=== PATIENT | male | born 1990 | race African-American/Black ===

== ENCOUNTER 2019-04-06 14:07 | Emergency (ER) | payer SELFPAY ==
--- NOTE | 2019-04-06 14:27 | ER Document Report ---
HPI - HPI Patient complains to provider of: insect bite Time Seen by Provider: 04/06/19 14:19 Onset: Other - 2 days ago Quality of pain: Achy Context: 28-year-old male with no prior history presents emergency department with sore to the right forearm. Reports he thinks it could be a spider bite but does not see anything bite him. Reports he noticed on . He did drain it at that time. He placed Neosporin and a Band-Aid on it the next day he squeezed it again got drainage. Reports the area is more swollen today. Denies fever vomiting diarrhea. Denies history of MRSA. Associated Symptoms: None Exacerbated by: Denies Relieved by: Denies Similar symptoms previously: No Recently seen / treated by doctor: No Past Medical History - General Information source: Patient - Social History Smoking Status: Current Every Day Smoker Cigarette use (# per day): Yes Occupation: [place] Family History: None Patient has suicidal ideation: No Patient has homicidal ideation: No - Medical History Medical History: Negative Surgical Hx: Negative Vertical Provider Document - CONSTITUTIONAL Agree With Documented VS: Yes Exam Limitations: No Limitations General Appearance: WD/WN, No Apparent Distress - HEENT HEENT: Atraumatic, Normocephalic - NECK Neck: Supple - RESPIRATORY Respiratory: No Respiratory Distress - CARDIOVASCULAR Cardiovascular: Regular Rate - MUSCULOSKELETAL/EXTREMETIES Musculoskeletal/Extremeties: MAEW, FROM, Non-Tender - NEURO Level of Consciousness: Awake, Alert, Appropriate Motor/Sensory: No Motor Deficit - DERM Integumentary: Warm, Dry, Abscess - Right forearm Adult Front & Back Diagram: 1 - Abscess noticed to right forearm induration approximately 3 cm erythema with dark area to the center. Patient reports drainage from that area Course - Re-evaluation Re-evalutation: 04/06/19 15:08 28-year-old male presents emergency department with right forearm questionable insect bite. Reports it happened on he is squeezed it drained it twice. Reports swelling today. Denies history of MRSA. Incision and drainage completed. Very little bloody drainage obtained. Patient was instructed on signs and symptoms of worsening infection. He was instructed on Septra. This instructed on signs and symptoms of allergic reaction. He verbalized understanding to all instructions. Dictation of this chart was performed using voice recognition software; theref ore, there may be some unintended grammatical errors. - Vital Signs Vital signs: Temp Pulse Resp BP Pulse Ox 98.2 F 95 18 144/79 H 99 04/06/19 14:14 04/06/19 14:14 04/06/19 14:14 04/06/19 14:14 04/06/19 14:14 Procedures - Incision and Drainage right forearm Time completed: 15:05 Type: Simple Anesthetic type: 1% Lidocaine I&D procedure: Shurclens applied Incision Method: Incision made by scalpel Adult Front & Back picture: 1 - T Shaped incision made with scalpel. Area probed small amount of bloody discharge obtained. Discharge - Discharge Clinical Impression: Abscess Condition: Stable Disposition: HOME, SELF-CARE Instructions: Abscess ([facility]), Post Incision and Drainage, Trimethoprim-Sulfa ([facility]) Additional Instructions: *You have been treated for an abscess with incision and drainage *Take medication as prescribed *Monitor the site for signs of increasing infection such as increasing pain, redness, swelling, warmth *Wash the site twice daily as discussed *Follow up with a primary care provider within one week *Return to ED for signs of increasing infection, worsening condition, changes, needs Prescriptions: Sulfamethoxazole/Trimethoprim [Bactrim Ds Tablet] 1 each PO BID #20 tablet Forms: Elevated Blood Pressure
[2019-04-06] MEDS ORDERED: SULFAMETHOXAZOLE/TRIMETHOPRIM 800-160 MG TABLET PO ONE ×2 (15:06→15:08)
[2019-04-06 15:22] VITALS: BP 127/73
== END 2019-04-06 15:29 | disposition home or self-care (01) ==
LOC: ER 14:07
DX: L02.413 Cutaneous abscess of right upper limb (principal); F17.210 Nicotine dependence, cigarettes, uncomplicated
CPT/HCPCS: 87070; 87075; 87077; 87186; 87205; 99283

== ENCOUNTER 2019-04-10 06:36 | Emergency (ER) | payer SELFPAY ==
[2019-04-10] MEDS ORDERED: SULFAMETHOXAZOLE/TRIMETHOPRIM 800-160 MG TABLET PO ONE (07:35)
[2019-04-10] MEDS ORDERED: CEPHALEXIN 500 MG CAPSULE PO ONE (07:35)
--- NOTE | 2019-04-10 07:37 | ER Document Report ---
HPI - HPI Time Seen by Provider: 04/10/19 07:07 Pain Level: 5 Notes: Pt with c/o pain and swelling to left thumb x3 days. States that he had some drainage come from under the nail. Recently took antibiotics for an abscess to his right forearm. 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 - MUSCULOSKELETAL Musculoskeletal: REPORTS: Extremity pain Past Medical History - General Information source: Patient - Social History Smoking Status: Current Every Day Smoker Frequency of alcohol use: None Drug Abuse: Marijuana Family History: None Patient has suicidal ideation: No Patient has homicidal ideation: No - Medical History Medical History: Negative Surgical Hx: Negative - Immunizations Immunizations up to date: Yes Vertical Provider Document - CONSTITUTIONAL Notes: PHYSICAL EXAMINATION: GENERAL: Well-appearing, well-nourished and in no acute distress. HEAD: Atraumatic, normocephalic. EYES: Pupils equal round extraocular movements intact, conjunctiva are normal. ENT: Nares patent NECK: Normal range of motion LUNGS: No respiratory distress Musculoskeletal: Normal range of motion NEUROLOGICAL: Normal speech, normal gait. PSYCH: Normal mood, normal affect. SKIN: Erythema, swelling, induration and fluctuance noted to left thumb. - INFECTION CONTROL TRAVEL OUTSIDE OF THE [place] IN LAST 30 DAYS: Yes Course - Re-evaluation Re-evalutation: Incision and drainage performed, patient tolerated well, see procedure note. Patient started on oral antibiotics. Patient given ED return precautions. The patient's emergency department workup and current diagnosis were explained to the patient and or family. Follow-up instructions were provided. Medications if prescribed were discussed. Instructions for when to return to the emergency department including specific worrisome symptoms were discussed with the patient and/or family. - Vital Signs Vital signs: Temp Pulse Resp BP Pulse Ox 97.8 F 85 16 130/79 H 04/10/19 06:37 04/10/19 06:37 04/10/19 06:37 04/10/19 06:37 Procedures - Incision and Drainage Left thumb Type: Simple Anesthetic type: 1% Lidocaine Blade size: 11 I&D procedure: Betadine prep applied Incision Method: Incision made by scalpel Discharge - Discharge Clinical Impression: Felon of digit Condition: Stable Disposition: HOME, SELF-CARE Instructions: Abscess ([facility]), Cephalexin ([facility]), Post Incision and Drainage, Trimethoprim-Sulfa ([facility]) Additional Instructions: Please soak the area and hot water 4 times daily. You may apply Epsom salts of the water this may help draw out the infection. Please take antibiotics as prescribed. Keep clean and dry at all times. Return with any new or worsening symptoms. Prescriptions: Sulfamethoxazole/Trimethoprim [Bactrim Ds Tablet] 1 tab PO BID #14 tablet Cephalexin [Keflex] 500 mg PO BID #14 capsule
[2019-04-10 08:00] VITALS: BP 129/88
== END 2019-04-10 08:00 | disposition home or self-care (01) ==
LOC: ER 06:36
DX: L03.012 Cellulitis of left finger (principal); M79.89 Other specified soft tissue disorders; F17.200 Nicotine dependence, unspecified, uncomplicated; Z86.14 Personal history of Methicillin resistant Staphylococcus aureus infection
CPT/HCPCS: 99283